=== PATIENT | male | born 1970 | race Caucasian/White ===

== ENCOUNTER 2017-11-29 06:06 | Emergency (ER) | payer OTHER ==
[~2017-11-29] VITALS: Ht 175.3 cm; Wt 61.3 kg
[~2017-11-29 06:06] MED LIST: AMOXICILLIN875 MG OR; LISINOPRIL10 MG PO; MEDDOSEPAK OR; SULAR20 MG PO; ULTRAM50 MG OR
[2017-11-29] MEDS ORDERED: METOPROLOL50 M1 PO (06:20)
[2017-11-29 07:08] LABS: HEMATOCRIT 40.8 % (39.0-50.0); HEMOGLOBIN 14.2 g/dl (14.0-18.0); IMMATURE GRANULOCYTES 0.4 % (0.0-5.0); MEAN CELL VOLUME 95.1 fL CALC (80.0-100.0); MEAN CORPUSCULAR HGB 33.1 pG CALC (26.0-32.0); MEAN CORPUSCULAR HGB CONC 34.8 g/L CALC (32.0-36.0); NEUT# 2.36 thou/uL (1.82-7.42); RED BLOOD COUNT 4.29 mill/uL (4.70-6.10); RED CELL DISTRI WIDTH 11.9 % (11.5-15.5)
[2017-11-29 07:15] LABS: BARBITURATES NEGATIVE (NEGATIVE); COCAINE NEGATIVE (NEGATIVE); METHADONE NEGATIVE (NEGATIVE); OXCYCODONE NEGATIVE (NEGATIVE); TETRAHYDROCANNABIONOL NEGATIVE (NEGATIVE); TRICYLIC ANTIDEPRESSANTS NEGATIVE (NEGATIVE)
[2017-11-29 07:22] LABS: URINE BILIRUBIN - DIPSTICK NEGATIVE (NEGATIVE); URINE BLOOD DIPSTICK SMALL (NEGATIVE); URINE COLOR YELLOW; URINE GLUCOSE - DIPSTICK NEGATIVE (NEGATIVE); URINE KETONE NEGATIVE (NEGATIVE); URINE LEUK ESTERASE NEGATIVE (NEGATIVE); URINE PH 5.5 (4.5-8.0); URINE PROTEIN - DIPSTICK NEGATIVE (NEG-TRACE); URINE SPECIFIC GRAVITY <=1.005; URINE UROBILINOGEN - DIPSTICK 0.2 E.U./dL (0.2)
[2017-11-29 07:24] LABS: URINE CLARITY CLEAR; URINE NITRITE - DIPSTICK NEGATIVE (Negative)
[2017-11-29 07:27] LABS: ALBUMIN 4.6 g/dL (3.2-5.0); ALKALINE PHOSPHATASE 78 u/l (38-126); ANION GAP 16 (6-22 (CALC)); BILIRUBIN, TOTAL 0.4 mg/dL (0.0-1.4); BUN 5 mg/dL (9-20); BUN/CREATININE RATIO 10 (12-20 (CALC)); CARBON DIOXIDE 26 mmol/l (22-30); CHLORIDE 103 mmol/l (95-108); CREATININE 0.5 mg/dL (0.7-1.3); GFR > 60 ML/MIN (>=60 (CALC)); GFR FOR AFR.AMER. > 60 ML/MIN (>=60 (CALC)); POTASSIUM 3.7 mmol/l (3.5-5.1); SGOT/AST 124 u/l (17-59); SGPT/ALT 122 u/l (21-72); SODIUM 142 mmol/l (137-146); TOTAL PROTEIN 8.2 g/dL (6.3-8.2)
[2017-11-29 07:39] LABS: MYOGLOBIN 46 ng/mL (0 - 121)
[2017-11-29] MEDS ORDERED: ZOFRAN ODT4 MG PO (07:59)
[2017-11-29 08:03] VITALS: BP 116/72
== END 2017-11-29 08:10 | disposition home or self-care (01) | DRG 641 ==
LOC: ED 06:06
PROVIDERS: Emergency Medicine
DX: E86.0 Dehydration (principal); F10.129 Alcohol abuse with intoxication, unspecified; I10 Essential (primary) hypertension; F17.290 Nicotine dependence, other tobacco product, uncomplicated

== ENCOUNTER 2021-05-03 13:00 | Emergency (ER) | payer OTHER ==
[~2021-05-03] VITALS: Ht 175.3 cm; Wt 70.5 kg
[~2021-05-03 13:00] MED LIST changes: +METOPROLOL50 M1 PO; +ZOFRAN ODT4 MG PO
[2021-05-03 13:08] VITALS: BP 148/96
[2021-05-03] MEDS ORDERED: DOXYCYCLINE100 MG PO (13:20)
== END 2021-05-03 14:40 | disposition home or self-care (01) | DRG 179 ==
LOC: ED 13:00
DX: U07.1 COVID-19 (principal); I10 Essential (primary) hypertension; F17.290 Nicotine dependence, other tobacco product, uncomplicated
CPT/HCPCS: J0561